=== PATIENT | female | born 1965 | race Caucasian/White ===

== ENCOUNTER 2017-09-10 22:35 | Inpatient (IN) | payer OTHER ==
[2017-09-11] MEDS: SODIUM CHLORIDE 0.9% 1L BAG IV* (00:13)
[2017-09-11] MEDS: ACETAMINOPHEN 325 MG TAB PO (00:15)
[2017-09-11 00:27] LABS: ADD MAN DIFF? NO
[2017-09-11 00:30] LABS: ABNORMAL IP MESSAGE 1; BASOPHILS % 0.2 % (0.0-2.0); EOSINOPHILS % 0.1 % (0.0-7.0); HEMATOCRIT 39.5 % (37.0-47.0); HEMOGLOBIN 13.5 g/dl (12.0-16.0); LYMPHOCYTES # 1.5 10^3/ul (0.8-2.9); LYMPHOCYTES % 7.4 % (15.0-51.0); MEAN CORPUSCULAR HEMOGLOBIN 32.8 pg (29.0-33.0); MEAN CORPUSCULAR HGB CONC 34.2 g/dl (32.0-37.0); MEAN CORPUSCULAR VOLUME 95.9 fl (82.0-101.0); MONOCYTE # 1.8 10^3/ul (0.3-0.9); NEUTROPHIL # 16.2 10^3/ul (1.6-7.5); NEUTROPHILS % 82.7 % (39.0-77.0); PLATELET COUNT 267 10^3/UL (140-415); RED BLOOD COUNT 4.12 10^6/ul (4.20-5.40); RED CELL DISTRIBUTION WIDTH 12.7 % (11.5-14.5)
[2017-09-11 00:30] LABS: WHITE BLOOD COUNT 19.6 10^3/ul (4.8-10.8)
[2017-09-11 00:39] LABS: POSITIVE DIFF @See below
[2017-09-11 00:49] LABS: LACTIC ACID 1.3 mmol/L (0.5-2.0)
[2017-09-11 00:49] LABS: INR 0.94; PROTIME 12.7 Sec (11.9-14.9)
[2017-09-11 00:50] LABS: PARTIAL THROMBOPLASTIN TIME 29.2 Sec (25.0-35.0)
[2017-09-11 00:54] LABS: ALANINE AMINOTRANSFERASE 54 IU/L (13-69); ALBUMIN 4.4 g/dl (3.3-4.9); ALBUMIN/GLOBULIN RATIO 1.46; ALKALINE PHOSPHATASE 52 IU/L (42-121); ANION GAP 12 (8-16); ASPARTATE AMINO TRANSFERASE 49 IU/L (15-46); BILIRUBIN,INDIRECT 0.8 mg/dl (0-1.1); BILIRUBIN,TOTAL 0.8 mg/dl (0.2-1.3); BLOOD UREA NITROGEN 10 mg/dl (7-20); CALCIUM 9.6 mg/dl (8.4-10.2); CARBON DIOXIDE 27 mmol/L (21-31); CHLORIDE 102 mmol/L (97-110); CREATININE 0.89 mg/dl (0.44-1.00); GLUCOSE 116 mg/dl (70-220); POTASSIUM 4.1 mmol/L (3.5-5.1); SODIUM 137 mmol/L (135-144); TOTAL PROTEIN 7.4 g/dl (6.1-8.1)
[2017-09-11 00:57] LABS: ADD UMIC YES; UR ASCORBIC ACID 20 mg/dL (NEGATIVE); UR BILIRUBIN (Dip) NEGATIVE (NEGATIVE); UR BLOOD (Dip) NEGATIVE (NEGATIVE); UR CLARITY SLIGHTLY CLOUDY (CLEAR); UR COLOR YELLOW (YELLOW); UR GLUCOSE (Dip) NEGATIVE (NEGATIVE); UR KETONES (Dip) NEGATIVE (NEGATIVE); UR LEUKOCYTE ESTERASE (Dip) NEGATIVE Leu/ul (NEGATIVE); UR MUCUS FEW /HPF (NONE SEEN); UR NITRITE (Dip) NEGATIVE (NEGATIVE); UR RBC 1 /HPF (0-5); UR SPECIFIC GRAVITY (Dip) 1.027 (1.003-1.030); UR SQUAMOUS EPITHELIAL CELL FEW /HPF (FEW); UR TOTAL PROTEIN (Dip) 1+ mg/dl (NEGATIVE); UR UROBILINOGEN (Dip) 2+ mg/dL (NEGATIVE); UR WBC 2 /HPF (0-5)
[2017-09-11 01:02] LABS: TROPONIN-I < 0.010 ng/ml (0.000-0.120)
[2017-09-11] MEDS: PIPER-TAZO 3.375 GM IV (PMX) 100 ML IVPB ×4 (03:31→18:27)
[2017-09-11 03:51] LABS: LACTIC ACID 0.9 mmol/L (0.5-2.0)
[2017-09-11] MEDS: ACETAMINOPHEN 500 MG TAB PO (04:00)
[2017-09-11] MEDS ORDERED: FENTAnyl 50 MCG/ML VIAL (05:08)
[2017-09-11] MEDS ORDERED: PROPOFOL 20 ML (05:08)
[2017-09-11] MEDS ORDERED: ROCURONIUM 50 MG INJ (05:08)
[2017-09-11] MEDS ORDERED: MIDAZOLAM 1 MG/ML 2 ML INJ (05:08)
[2017-09-11] MEDS ORDERED: CEFAZOLIN 1 GM INJ (05:08)
[2017-09-11] MEDS ORDERED: NEOSTIGMINE 3 MG/3 ML SYRINGE (05:08)
[2017-09-11] MEDS ORDERED: GLYCOPYRROLATE 0.4 MG INJ (05:08)
[2017-09-11] MEDS ORDERED: ONDANSETRON 4 MG INJ (05:08)
[2017-09-11] MEDS ORDERED: DEXAMETHASONE 4 MG/ML 1 ML INJ (05:09)
[2017-09-11] MEDS ORDERED: HYDROCODONE/APAP (5/325) TAB PO (05:30)
[2017-09-11] MEDS ORDERED: BUPIVACAINE 0.25% (MPF) 30 ML INJ (05:36)
[2017-09-11] MEDS: BUPIVACAINE 0.25%/EPI (SDV) 30 ML INJ INJ (05:39)
[2017-09-11] MEDS ORDERED: SUGAMMADEX SODIUM 200 MG/2 ML VIAL IV (05:44)
[2017-09-11] MEDS ORDERED: TRIMETHOBENZAMIDE 100 MG/ML VIAL IM (06:00)
[2017-09-11] MEDS ORDERED: MIDAZOLAM 1 MG/ML 2 ML INJ IV (06:00)
[2017-09-11] MEDS ORDERED: DIPHENHYDRAMINE 50 MG INJ IV (06:00)
[2017-09-11] MEDS ORDERED: EPHEDrine SULFATE 50 MG/5 ML SYG IV (06:00)
[2017-09-11] MEDS ORDERED: hydrALAzine 20 MG INJ IV (06:00)
[2017-09-11] MEDS ORDERED: HYDROmorphONE 1 MG/5 ML IV SYRINGE IV ×3 (06:00)
[2017-09-11] MEDS ORDERED: ALBUTEROL 0.083% (NEB) 2.5 MG/3 ML AMP HHN (06:00)
[2017-09-11] MEDS ORDERED: FENTAnyl 50 MCG/ML VIAL IV ×3 (06:00)
[2017-09-11] MEDS ORDERED: LABETALOL HCL 20MG INJ IV (06:00)
[2017-09-11] MEDS ORDERED: OXYCODONE/ACETAMINOPHEN (5/325) TAB PO ×2 (06:00)
[2017-09-11] MEDS ORDERED: IPRATROPIUM (NEB) 0.5 MG/2.5 ML AMP HHN (06:00)
[2017-09-11] MEDS ORDERED: ONDANSETRON 4 MG INJ IV (06:00)
[2017-09-11] MEDS: KETOROLAC 15 MG INJ IV ×3 (06:11→18:28)
[2017-09-11] MEDS: MEPERIDINE 25 MG INJ IV (06:12)
[2017-09-11] MEDS ORDERED: ENOXAPARIN 40 MG/0.4 ML SYG SC (07:00)
[2017-09-11] MEDS: D5-NS + KCL 20 MEQ 1,000 ML IV ×3 (08:59→21:18)
[2017-09-11] MEDS: morphine 2 MG INJ IV (09:09)
[2017-09-11] MEDS: ONDANSETRON 4 MG INJ IV (09:10)
[2017-09-11 10:35] LABS: LACTIC ACID 1.1 mmol/L (0.5-2.0)
[2017-09-11] MEDS: SOD CHLORIDE 0.9% 500 ML IV (11:28)
[2017-09-11 16:45] LABS: ADD MAN DIFF? NO
[2017-09-11 16:46] LABS: WHITE BLOOD COUNT 16.6 10^3/ul (4.8-10.8)
[2017-09-11 16:46] LABS: BASOPHILS % 0.1 % (0.0-2.0); HEMATOCRIT 33.1 % (37.0-47.0); HEMOGLOBIN 11.1 g/dl (12.0-16.0); LYMPHOCYTES # 0.7 10^3/ul (0.8-2.9); LYMPHOCYTES % 4.3 % (15.0-51.0); MEAN CORPUSCULAR HEMOGLOBIN 32.9 pg (29.0-33.0); MEAN CORPUSCULAR HGB CONC 33.5 g/dl (32.0-37.0); MEAN CORPUSCULAR VOLUME 98.2 fl (82.0-101.0); MONOCYTE # 0.7 10^3/ul (0.3-0.9); NEUTROPHIL # 15.1 10^3/ul (1.6-7.5); NEUTROPHILS % 90.8 % (39.0-77.0); PLATELET COUNT 185 10^3/UL (140-415); RED BLOOD COUNT 3.37 10^6/ul (4.20-5.40)
[2017-09-11 17:09] LABS: LACTIC ACID 1.3 mmol/L (0.5-2.0)
[2017-09-11] MEDS: ENOXAPARIN 40 MG/0.4 ML SYG SC (18:31)
[2017-09-12] MEDS: PIPER-TAZO 3.375 GM IV (PMX) 100 ML IVPB ×5 (00:24→23:48)
[2017-09-12] MEDS: KETOROLAC 15 MG INJ IV (00:24)
[2017-09-12 05:42] LABS: ADD MAN DIFF? NO
[2017-09-12 05:54] LABS: WHITE BLOOD COUNT 14.9 10^3/ul (4.8-10.8)
[2017-09-12 05:54] LABS: BASOPHILS % 0.2 % (0.0-2.0); EOSINOPHILS % 0.1 % (0.0-7.0); HEMATOCRIT 31.1 % (37.0-47.0); HEMOGLOBIN 10.4 g/dl (12.0-16.0); LYMPHOCYTES # 1.7 10^3/ul (0.8-2.9); LYMPHOCYTES % 11.3 % (15.0-51.0); MEAN CORPUSCULAR HEMOGLOBIN 33.5 pg (29.0-33.0); MEAN CORPUSCULAR HGB CONC 33.4 g/dl (32.0-37.0); MEAN CORPUSCULAR VOLUME 100.3 fl (82.0-101.0); MEAN PLATELET VOLUME 9.6 fl (7.4-10.4); MONOCYTE # 0.9 10^3/ul (0.3-0.9); MONOCYTES % 5.7 % (0.0-11.0); NEUTROPHIL # 12.2 10^3/ul (1.6-7.5); NEUTROPHILS % 82.1 % (39.0-77.0); PLATELET COUNT 199 10^3/UL (140-415); RED CELL DISTRIBUTION WIDTH 13.2 % (11.5-14.5)
[2017-09-12] MEDS: IBUPROFEN 600 MG TAB PO ×2 (06:01→11:41)
[2017-09-12] MEDS: ENOXAPARIN 40 MG/0.4 ML SYG SC (06:06)
[2017-09-12 06:18] LABS: PHOSPHORUS 2.3 mg/dl (2.5-4.9)
[2017-09-12 06:18] LABS: MAGNESIUM 1.9 mg/dl (1.7-2.5)
[2017-09-12 06:42] LABS: ALANINE AMINOTRANSFERASE 37 IU/L (13-69); ALBUMIN/GLOBULIN RATIO 1.03; ALKALINE PHOSPHATASE 35 IU/L (42-121); ANION GAP 8 (8-16); ASPARTATE AMINO TRANSFERASE 29 IU/L (15-46); BILIRUBIN,INDIRECT 0.5 mg/dl (0-1.1); BILIRUBIN,TOTAL 0.5 mg/dl (0.2-1.3); BLOOD UREA NITROGEN 9 mg/dl (7-20); CALCIUM 7.5 mg/dl (8.4-10.2); CARBON DIOXIDE 24 mmol/L (21-31); CHLORIDE 112 mmol/L (97-110); CREATININE 0.84 mg/dl (0.44-1.00); GLUCOSE 123 mg/dl (70-220); POTASSIUM 3.9 mmol/L (3.5-5.1); SODIUM 140 mmol/L (135-144); TOTAL PROTEIN 5.9 g/dl (6.1-8.1)
[2017-09-12] MEDS: D5-NS + KCL 20 MEQ 1,000 ML IV (11:29)
[2017-09-12] MEDS: ONDANSETRON 4 MG INJ IV ×3 (11:29→23:52)
[2017-09-12] MEDS: SOD CHLORIDE 0.9% 1,000 ML IV (17:19)
[2017-09-12] MEDS: NEUTRA-PHOS 250 MG PACKET PO (20:53)
[2017-09-13] MEDS: SOD CHLORIDE 0.9% 1,000 ML IV ×2 (05:32→22:30)
[2017-09-13] MEDS: IBUPROFEN 600 MG TAB PO (05:32)
[2017-09-13] MEDS: PIPER-TAZO 3.375 GM IV (PMX) 100 ML IVPB ×3 (05:32→18:38)
[2017-09-13] MEDS: ONDANSETRON 4 MG INJ IV (05:32)
[2017-09-13] MEDS: ENOXAPARIN 40 MG/0.4 ML SYG SC (05:41)
[2017-09-13 06:09] LABS: ADD MAN DIFF? NO
[2017-09-13 06:21] LABS: BASOPHILS % 0.4 % (0.0-2.0); EOSINOPHILS # 0.2 10^3/ul (0.0-0.5); EOSINOPHILS % 2.1 % (0.0-7.0); HEMATOCRIT 31.8 % (37.0-47.0); HEMOGLOBIN 10.6 g/dl (12.0-16.0); LYMPHOCYTES % 19.5 % (15.0-51.0); MEAN CORPUSCULAR HEMOGLOBIN 32.6 pg (29.0-33.0); MEAN CORPUSCULAR HGB CONC 33.3 g/dl (32.0-37.0); MEAN CORPUSCULAR VOLUME 97.8 fl (82.0-101.0); MEAN PLATELET VOLUME 9.8 fl (7.4-10.4); MONOCYTE # 0.7 10^3/ul (0.3-0.9); MONOCYTES % 6.6 % (0.0-11.0); NEUTROPHIL # 7.4 10^3/ul (1.6-7.5); PLATELET COUNT 254 10^3/UL (140-415); RED BLOOD COUNT 3.25 10^6/ul (4.20-5.40)
[2017-09-13 06:21] LABS: WHITE BLOOD COUNT 10.5 10^3/ul (4.8-10.8)
[2017-09-13 06:41] LABS: PHOSPHORUS 2.4 mg/dl (2.5-4.9)
[2017-09-13 06:43] LABS: ANION GAP 11 (8-16); BLOOD UREA NITROGEN 7 mg/dl (7-20); CALCIUM 7.4 mg/dl (8.4-10.2); CARBON DIOXIDE 20 mmol/L (21-31); CHLORIDE 110 mmol/L (97-110); CREATININE 0.65 mg/dl (0.44-1.00); GLUCOSE 74 mg/dl (70-220); POTASSIUM 3.9 mmol/L (3.5-5.1); SODIUM 137 mmol/L (135-144)
[2017-09-13] MEDS: NEUTRA-PHOS 250 MG PACKET PO (08:28)
[2017-09-14] MEDS: PIPER-TAZO 3.375 GM IV (PMX) 100 ML IVPB ×4 (00:32→17:43)
[2017-09-14 05:02] LABS: ADD MAN DIFF? NO
[2017-09-14 05:06] LABS: WHITE BLOOD COUNT 7.6 10^3/ul (4.8-10.8)
[2017-09-14 05:06] LABS: BASOPHILS % 0.5 % (0.0-2.0); EOSINOPHILS # 0.3 10^3/ul (0.0-0.5); HEMATOCRIT 31.7 % (37.0-47.0); HEMOGLOBIN 10.7 g/dl (12.0-16.0); LYMPHOCYTES # 1.9 10^3/ul (0.8-2.9); LYMPHOCYTES % 25.3 % (15.0-51.0); MEAN CORPUSCULAR HEMOGLOBIN 32.5 pg (29.0-33.0); MEAN CORPUSCULAR HGB CONC 33.8 g/dl (32.0-37.0); MEAN CORPUSCULAR VOLUME 96.4 fl (82.0-101.0); MEAN PLATELET VOLUME 9.1 fl (7.4-10.4); MONOCYTE # 0.6 10^3/ul (0.3-0.9); MONOCYTES % 7.9 % (0.0-11.0); NEUTROPHIL # 4.7 10^3/ul (1.6-7.5); NEUTROPHILS % 61.8 % (39.0-77.0); PLATELET COUNT 275 10^3/UL (140-415); RED BLOOD COUNT 3.29 10^6/ul (4.20-5.40); RED CELL DISTRIBUTION WIDTH 12.3 % (11.5-14.5)
[2017-09-14 05:33] LABS: ANION GAP 7 (8-16); BLOOD UREA NITROGEN 6 mg/dl (7-20); CALCIUM 8.2 mg/dl (8.4-10.2); CARBON DIOXIDE 25 mmol/L (21-31); CHLORIDE 109 mmol/L (97-110); CREATININE 0.74 mg/dl (0.44-1.00); GLUCOSE 91 mg/dl (70-220); POTASSIUM 3.7 mmol/L (3.5-5.1); SODIUM 137 mmol/L (135-144)
[2017-09-14] MEDS: ENOXAPARIN 40 MG/0.4 ML SYG SC (06:51)
[2017-09-15] MEDS: PIPER-TAZO 3.375 GM IV (PMX) 100 ML IVPB ×3 (00:50→11:38)
[2017-09-15] MEDS: ACETAMINOPHEN 325 MG TAB PO ×2 (05:30→13:19)
[2017-09-15] MEDS: ENOXAPARIN 40 MG/0.4 ML SYG SC (06:23)
[2017-09-15 06:24] LABS: ADD MAN DIFF? NO
[2017-09-15 06:34] LABS: BASOPHILS % 0.5 % (0.0-2.0); EOSINOPHILS # 0.4 10^3/ul (0.0-0.5); EOSINOPHILS % 4.6 % (0.0-7.0); HEMATOCRIT 35.7 % (37.0-47.0); HEMOGLOBIN 12.4 g/dl (12.0-16.0); LYMPHOCYTES # 2.5 10^3/ul (0.8-2.9); LYMPHOCYTES % 31.3 % (15.0-51.0); MEAN CORPUSCULAR HEMOGLOBIN 33.3 pg (29.0-33.0); MEAN CORPUSCULAR HGB CONC 34.7 g/dl (32.0-37.0); MEAN PLATELET VOLUME 9.2 fl (7.4-10.4); MONOCYTE # 0.7 10^3/ul (0.3-0.9); MONOCYTES % 8.4 % (0.0-11.0); NEUTROPHIL # 4.4 10^3/ul (1.6-7.5); NEUTROPHILS % 54.3 % (39.0-77.0); PLATELET COUNT 355 10^3/UL (140-415); RED BLOOD COUNT 3.72 10^6/ul (4.20-5.40); RED CELL DISTRIBUTION WIDTH 12.2 % (11.5-14.5)
[2017-09-15 07:36] LABS: ANION GAP 10 (8-16); BLOOD UREA NITROGEN 9 mg/dl (7-20); CALCIUM 8.7 mg/dl (8.4-10.2); CARBON DIOXIDE 28 mmol/L (21-31); CHLORIDE 103 mmol/L (97-110); CREATININE 0.82 mg/dl (0.44-1.00); GLUCOSE 91 mg/dl (70-220); POTASSIUM 3.4 mmol/L (3.5-5.1); SODIUM 138 mmol/L (135-144)
== END 2017-09-15 14:00 | disposition home or self-care (01) | DRG 853 ==
LOC: E/R 22:35 → REC 09-11 03:20 → MS1 09-11 07:33
PROVIDERS: Internal Medicine Nephrology
PROC: 0DTJ4ZZ Resection of Appendix, Percutaneous Endoscopic Approach (ICD-10-PCS; principal; 2017-09-11 05:00)
DX: A41.9 Sepsis, unspecified organism (principal); K35.2 Acute appendicitis with generalized peritonitis; I10 Essential (primary) hypertension; D64.9 Anemia, unspecified; I95.9 Hypotension, unspecified
CPT/HCPCS: 36415; 71045; 74176; 80048; 80053; 81001; 83605; 83735; 84100; 84484; 84703; 85025; 85610; 85730; 87040; 87086; 88304; 93005; 99285-25